=== PATIENT | male | born 1985 | race Caucasian/White ===

== ENCOUNTER 2017-07-24 16:09 | Emergency (ER) | payer SELFPAY ==
[~2017-07-24] VITALS: Ht 180.3 cm; Wt 122.5 kg
[2017-07-24 16:22] VITALS: Ht 180.3 cm; Wt 122.5 kg
[2017-07-24 18:23] VITALS: BP 124/78
== END 2017-07-24 18:23 | disposition other institution (70) ==
LOC: ED 16:09
DX: S01.111A Laceration without foreign body of right eyelid and periocular area, initial encounter (principal); S09.90XA Unspecified injury of head, initial encounter; I10 Essential (primary) hypertension; E78.00 Pure hypercholesterolemia, unspecified; Z88.0 Allergy status to penicillin; Z88.2 Allergy status to sulfonamides; Z88.1 Allergy status to other antibiotic agents; Z01.818 Encounter for other preprocedural examination; V89.2XXA Person injured in unspecified motor-vehicle accident, traffic, initial encounter; Y93.89 Activity, other specified; Y92.89 Other specified places as the place of occurrence of the external cause; Y99.8 Other external cause status
CPT/HCPCS: 90715

== ENCOUNTER 2017-07-24 16:09 | Emergency (ER) | payer OTHER | END 2017-07-24 18:23 | disposition other institution (70) | LOC: ED 16:09 | DX: Z02.89 Encounter for other administrative examinations (principal) ==